=== PATIENT | female | born 1975 | race Caucasian/White ===

== ENCOUNTER 2017-11-17 09:39 | Outpatient (CLI) | payer OTHER | END 2017-11-17 12:26 | disposition home or self-care (01) | LOC: SONOGRAMA 09:39 | DX: R10.13 Epigastric pain (principal); K30 Functional dyspepsia; K59.00 Constipation, unspecified ==

== ENCOUNTER 2019-05-25 08:30 | Outpatient (CLI) | payer OTHER | END 2019-05-25 08:36 | disposition home or self-care (01) | LOC: SONOGRAMA 08:30 → MAMO-SONO 08:30 → SONOGRAMA 08:36 | DX: R10.13 Epigastric pain (principal) ==

== ENCOUNTER 2020-04-05 16:31 | Emergency (ER) | payer OTHER ==
[~2020-04-05] VITALS: Ht 160 cm; Wt 57.6 kg
== END 2020-04-05 21:00 | disposition home or self-care (01) ==
LOC: ER 16:31
DX: N39.0 Urinary tract infection, site not specified (principal); R10.13 Epigastric pain; T36.8X5A Adverse effect of other systemic antibiotics, initial encounter; Y92.89 Other specified places as the place of occurrence of the external cause

== ENCOUNTER 2020-04-19 12:31 | Emergency (ER) | payer OTHER ==
[~2020-04-19] VITALS: Ht 162.6 cm; Wt 59.0 kg
== END 2020-04-19 17:34 | disposition home or self-care (01) ==
LOC: ER 12:31
DX: M54.32 Sciatica, left side (principal)

== ENCOUNTER → 2020-04-21 | Outpatient (CLI) | payer OTHER | END | disposition home or self-care (01) | LOC: RAD 10:01 | PROVIDERS: ATTEND General Practice | DX: M54.5 Low back pain (principal); M54.6 Pain in thoracic spine; M54.2 Cervicalgia ==

== ENCOUNTER 2020-05-20 16:37 | Outpatient (CLI) | payer OTHER | END 2020-05-20 16:47 | disposition home or self-care (01) | LOC: LAB 16:37 | PROVIDERS: ATTEND Physical Medicine & Rehabilitation Sports Medicine | DX: Z20.828 Contact with and (suspected) exposure to other viral communicable diseases (principal); Z03.818 Encounter for observation for suspected exposure to other biological agents ruled out ==

== ENCOUNTER 2020-11-03 09:32 | Emergency (ER) | payer OTHER ==
[~2020-11-03] VITALS: Ht 172.7 cm; Wt 56.2 kg
[2020-11-03] MEDS ORDERED: CIPRO500 MG PO (14:17)
[2020-11-03] MEDS ORDERED: INTESTINEX680 M1 PO (14:17)
== END 2020-11-03 14:38 | disposition home or self-care (01) ==
LOC: ER 09:32
DX: R30.0 Dysuria (principal); N39.0 Urinary tract infection, site not specified; Z03.818 Encounter for observation for suspected exposure to other biological agents ruled out

== ENCOUNTER 2020-11-10 18:27 | Emergency (ER) | payer OTHER ==
[~2020-11-10] VITALS: Ht 165.1 cm; Wt 54.9 kg
[~2020-11-10 18:27] MED LIST: CIPRO500 MG PO; INTESTINEX680 M1 PO
[2020-11-10] MEDS ORDERED: YASMIN 28 TABL1 EACH (18:52)
== END 2020-11-11 03:33 | disposition home or self-care (01) ==
LOC: ER 18:27
DX: R33.8 Other retention of urine (principal)

== ENCOUNTER 2022-06-04 14:38 | Outpatient (CLI) | payer OTHER ==
[~2022-06-04 14:38] MED LIST changes: +YASMIN 28 TABL1 EACH
== END 2022-06-04 14:51 | disposition home or self-care (01) ==
LOC: TOM 14:38
DX: J31.0 Chronic rhinitis (principal); J32.8 Other chronic sinusitis

== ENCOUNTER → 2022-06-19 | Emergency (ER) | payer OTHER ==
[~2022-06-19] VITALS: Ht 165.1 cm; Wt 48.5 kg
[~2022-06-19] MED LIST changes: +ACID REDUCER20 M1 PO; +AZELASTINE137 MCG/0.; +PATADAY2.5 ML OP
== END | disposition home or self-care (01) ==
LOC: ER 08:36
DX: S69.81XA Other specified injuries of right wrist, hand and finger(s), initial encounter (principal); X58.XXXA Exposure to other specified factors, initial encounter; Y93.9 Activity, unspecified; Y92.009 Unspecified place in unspecified non-institutional (private) residence as the place of occurrence of the external cause